=== PATIENT | female | born 1985 | race Two or more races ===

== ENCOUNTER 2024-04-07 10:17 | Emergency (ER) | payer OTHER ==
[2024-04-07 10:55] VITALS: TEMP 98.4; BMI 35.9
[2024-04-07 10:59] LABS: BASO % 1.3 % (0-2.0); HEMATOCRIT 39.8 % (32.4-45.2); HEMOGLOBIN 13.2 GM/dL (10.7-15.3); LYMPH % 29.4 % (8-40); MCH 29.9 pg (25.7-33.7); MCHC 33.2 g/dl (32.0-36.0); MEAN PLT VOLUME 8.1 fl (7.5-11.1); MONO % 6.2 % (3.8-10.2); NEUT % 62.1 % (42.8-82.8); PLATELET COUNT 221 10^3/uL (134-434); RBC 4.42 M/mm3 (3.60-5.2); RDW 14.1 % (11.6-15.6); WHITE BLOOD COUNT 5.1 K/mm3 (4.0-10.0)
[2024-04-07 11:08] LABS: INR 1.06 (0.83-1.09); PROTHROMBIN TIME (PATIENT) 12.2 SEC (9.7-13.0)
[2024-04-07 11:11] LABS: ACTIVATED PTT 32.4 SECONDS (25.2-36.5)
[2024-04-07 11:18] LABS: POTASSIUM 3.7 mmol/L (3.5-5.1)
[2024-04-07 11:20] LABS: CALCIUM 9.2 mg/dL (8.5-10.1)
[2024-04-07 11:21] LABS: ALBUMIN 4.1 g/dl (3.4-5.0); BLOOD UREA NITROGEN 13.8 mg/dL (7-18)
[2024-04-07 11:24] LABS: CREATININE 0.7 mg/dL (0.55-1.3)
[2024-04-07 11:26] LABS: BILIRUBIN,TOTAL 0.4 mg/dL (0.2-1); TOT PROT 7.4 g/dl (6.4-8.2)
[2024-04-07] MEDS ORDERED: ACETAMINOPHEN 325 MG TABLET (FP) ONE (11:34)
[2024-04-07] MEDS: ACETAMINOPHEN 325 MG TABLET (FP) PO ONE (11:36)
[2024-04-07 13:55] VITALS: BP 121/72; PULSE 100; RESP 19
== END 2024-04-07 14:00 | disposition home or self-care (01) ==
LOC: JER 10:17
DX: R07.89 Other chest pain (principal); R10.12 Left upper quadrant pain; M54.2 Cervicalgia; V03.90XA Pedestrian on foot injured in collision with car, pick-up truck or van, unspecified whether traffic or nontraffic accident, initial encounter; Y92.481 Parking lot as the place of occurrence of the external cause
CPT/HCPCS: 36415; 71046-TC-FY; 73030-TC-LT-FY; 73521-TC-FY; 80053; 84703; 85025; 85610; 85730; 86850; 86900; 86901; 99284-25